=== PATIENT | female | born 1945 | race Caucasian/White ===

== ENCOUNTER → 2017-04-26 | Outpatient (CLI) | payer MEDICARE, BC | LOC: MC.RAD 13:32 | DX: Z12.31 Encounter for screening mammogram for malignant neoplasm of breast (principal) ==

== ENCOUNTER → 2018-04-27 | Outpatient (CLI) | payer MEDICARE, BC | LOC: MC.RAD 13:35 | DX: Z12.31 Encounter for screening mammogram for malignant neoplasm of breast (principal); Z98.890 Other specified postprocedural states ==

== ENCOUNTER → 2019-04-29 | Outpatient (CLI) | payer MEDICARE, BC | LOC: MC.RAD 13:23 | DX: Z12.31 Encounter for screening mammogram for malignant neoplasm of breast (principal) ==

== ENCOUNTER → 2020-04-30 | Outpatient (CLI) | payer MEDICARE, BC | LOC: MC.RAD 14:51 | DX: Z12.31 Encounter for screening mammogram for malignant neoplasm of breast (principal) ==

== ENCOUNTER → 2021-05-25 | Outpatient (CLI) | payer MEDICARE, BC | LOC: MC.RAD 13:41 | DX: Z12.31 Encounter for screening mammogram for malignant neoplasm of breast (principal) ==

== ENCOUNTER → 2022-08-24 | Outpatient (CLI) | payer MEDICARE | LOC: MC.RAD 11:05 | DX: Z12.31 Encounter for screening mammogram for malignant neoplasm of breast (principal) ==

== ENCOUNTER 2023-05-29 14:47 | Outpatient (CLI) | payer MEDICARE ==
[~2023-05-29] VITALS: Ht 157.5 cm; Wt 62.9 kg
[2023-05-29 14:58] VITALS: BP 178/92; PULSE 91; TEMP 97.9
[2023-05-29] MEDS ORDERED: EUTHYROX75 MCG PO (15:14)
[2023-05-29] MEDS ORDERED: PREDNISONE10 MG PO (15:14)
[2023-05-29] MEDS ORDERED: NORVASC 5MG5 MG/TAB PO (15:14)
[2023-05-29] MEDS ORDERED: ISTALOL 2.5 ML2.5 ML OU (15:15)
[2023-05-29] MEDS ORDERED: MULTIPLE VITAMI1 CAP PO (15:16)
[2023-05-29] MEDS ORDERED: VITAMIN B-12500 MC4 PO (15:16)
[2023-05-29] MEDS ORDERED: LUMIFY2.5 ML OP (15:16)
[2023-05-29] MEDS ORDERED: MAGNESIUM200 MG PO (15:17)
== END 2023-05-29 15:31 | disposition home or self-care (01) ==
LOC: EUO 14:47
DX: M81.0 Age-related osteoporosis without current pathological fracture (principal)
CPT/HCPCS: J0897

== ENCOUNTER → 2023-08-28 | Outpatient (CLI) | payer MEDICARE ==
[~2023-08-28] MED LIST: EUTHYROX75 MCG PO; ISTALOL 2.5 ML2.5 ML OU; LUMIFY2.5 ML OP; MAGNESIUM200 MG PO; MULTIPLE VITAMI1 CAP PO; NORVASC 5MG5 MG/TAB PO; PREDNISONE10 MG PO; VITAMIN B-12500 MC4 PO
== END ==
LOC: CANSCHCLI → MC.RAD 13:42
DX: Z12.31 Encounter for screening mammogram for malignant neoplasm of breast (principal)